=== PATIENT | female | born 1995 | race American Indian/Alaskan Native ===

== ENCOUNTER 2018-11-26 07:33 | Day surgery (SDC) | payer OTHER ==
[2018-11-26] MEDS ORDERED: NACL 0.9% 1000 ML 1,000 ML IV SCH (08:00)
--- NOTE | 2018-11-26 08:32 | Anesthesia Day of Surgery ---
Anesthesia Day of Surgery - Day of Surgery Patient Examined: Yes Patient H&P Reviewed: Yes Patient is NPO: Yes Beta Blockers: No
--- NOTE | 2018-11-26 08:33 | Anesthesia Consultation ---
Anesthesia Consult and Med Hx Date of service: 11/26/18 - Airway Anesthetic Teeth Evaluation: Good ROM Head & Neck: Adequate Mental/Hyoid Distance: Adequate Mallampati Class: Class III Intubation Access Assessment: Good - Pulmonary Exam CTA: Yes - Cardiac Exam Cardiac Exam: RRR - Pre-Operative Health Status ASA Pre-Surgery Classification: ASA2 Proposed Anesthetic Plan: MAC - Central Nervous System Hx Psychiatric Problems: Yes (depression and anxiety ) - Other Systems Hx Obesity: Yes
[2018-11-26] MEDS ORDERED: VERSED ONE (08:36)
[2018-11-26] MEDS ORDERED: DIPRIVAN 10 MG/ML IV ONE ×2 (08:43)
[2018-11-26] MEDS ORDERED: WATER FOR IRRIG STERILE IR ONE (08:58)
[2018-11-26] MEDS ORDERED: WATER FOR IRRIG STERILE ONE (08:58)
--- NOTE | 2018-11-26 09:23 | Procedure Note ---
Date of procedure: 11/26/18 Pre-op diagnosis: Changes in Bowel Habit Post-op diagnosis: other (Solitary,Transverse Colon Polyp (removed by snare excision and retrieved)/R/O Microscopic Colitis/ R/O Ileitis/ Minor,Internal and External Hemorrhoid) Procedure: Colonscopy and Cold Snare Polypectomy and Cold Biopsy Anesthesia: [facility] [place] Surgeon: LU HUYNH Estimated blood loss: minimal Pathology: list Specimen disposition: to lab Condition: stable Disposition: same day (Avoid aspirin and NSAID for 5 days and encourage OTC Probiotic use and follow up in 1 to 2 weeks ([phone]).)
[2018-11-26 10:04] VITALS: BP 124/84
--- NOTE | 2018-11-26 11:02 | Operative Report ---
PROCEDURE: Colonoscopy with snare polypectomy and biopsy. INDICATIONS: A 22-year-old -[place] female who has been complaining of changes in bowel habit and some associated abdominal pain. Colonoscopy was done to assess for the problem. DESCRIPTION OF PROCEDURE: The procedure was done after getting informed consent with MAC anesthesia. Initial rectal exam showed presence of some minor external hemorrhoids. The instrument was passed through the rectum onto the cecum, which was identified by the ileocecal valve and the appendiceal orifice. Visualization was fair to good. The terminal ileum was intubated showed normal mucosa. Biopsy was done to rule out for possible ileitis. Cecum, ascending colon and most of the transverse colon showed normal mucosa as did the descending and the sigmoid colon and rectum. Random biopsies were done to rule out for possible microscopic colitis. In the proximal transverse colon, there was a 10 mm polyp noted that was removed by snare polypectomy and removed. In the cecum, the scope was retroflexed and no additional pathology was noted. The rectum showed minor internal hemorrhoids on the retroverted view. ASSESSMENT AND PLAN: Changes in bowel habit, rule out microscopic colitis, rule out ileitis, colon polyp in the proximal transverse colon. Minor internal and external hemorrhoids. There was minimal bleeding from the biopsy and the polypectomy site. No complications associated with the procedure. The patient will be asked to follow up in the office in 1-2 weeks' time and to avoid aspirin and aspirin-related products for the next few days. Further treatment adjustment will be done according to the biopsy findings and the patient will also be encouraged to take some probiotics in the meantime. The procedure was done in the presence of RN, Yisel Mendes. JOB# [id number] RANDI/TIFFANY
== END 2018-11-26 07:34 | disposition home or self-care (01) ==
LOC: GIO 07:33
DX: K63.5 Polyp of colon (principal); K31.89 Other diseases of stomach and duodenum; K63.89 Other specified diseases of intestine; K64.8 Other hemorrhoids; E66.9 Obesity, unspecified; Z68.38 Body mass index [BMI] 38.0-38.9, adult; Z79.899 Other long term (current) drug therapy; Z98.890 Other specified postprocedural states
CPT/HCPCS: 45380; 45385; 81025; 88305; J2250; J2704; J7030